=== PATIENT | male | born 1965 | race Caucasian/White ===

== ENCOUNTER 2016-09-12 07:39 | Emergency (ER) | payer SELFPAY ==
[~2016-09-12] VITALS: Ht 180.3 cm; Wt 85.0 kg
[~2016-09-12 07:39] MED LIST: Z.0.NO CURRENT MEDS
[2016-09-12 07:52] VITALS: BP 143/85; PULSE 67; RESP 20; TEMP 98.9; O2SAT 98
--- NOTE | 2016-09-12 08:59 | PD ---
HPI Chief Complaint: Musculoskeletal Complaint Time Seen by Provider: 08:31 Travel History International Travel<30 days: No Contact w/Intl Traveler<30days: No Traveled to known affect area: No History of Present Illness HPI 51-year-old male complains of pain swelling and redness left leg. Patient states that she started noticed redness swelling extended from the left low leg of the left thigh for the past 4 days. Patient denies any fever chills. Patient denies any injury to left leg. Patient denies history of DVT or PE. Patient denies any history of IV drug abuse. PFSH Past Medical History Arthritis: Yes ( back) Asthma: No Autoimmune Disease: Yes (HIV+ PT DENIES) Blood Disorders: No Bipolar Disorder: Yes Anxiety: Yes Depression: Yes Heart Rhythm Problems: No Cancer: No Cardiovascular Problems: No High Cholesterol: No Chemotherapy: No Chest Pain: Yes Congestive Heart Failure: No COPD: No Cerebrovascular Accident: No Diabetes: No Diminished Hearing: No Endocrine: No Gastrointestinal Disorders: No GERD: Yes Glaucoma: No Genitourinary: No Headaches: No Hepatitis: Yes Hiatal Hernia: No Hypertension: Yes Immune Disorder: No Implanted Vascular Access Dvce: No Kidney Stones: No Musculoskeletal: No Neurologic: No Psychiatric: Yes Reproductive: No Respiratory: No Immunizations Current: No Migraines: No Myocardial Infarction: No Pancreatitis: Yes Radiation Therapy: No Renal Failure: No Schizophrenia: Yes Seizures: Yes (ETOH withdrawal related) Sickle Cell Disease: No Sleep Apnea: No Thyroid Disease: No Ulcer: No Tetanus Vaccination: > 5 Years Influenza Vaccination: No PNEUMOCCOCAL Vaccine (Year): 2 Past Surgical History Abdominal Surgery: Yes AICD: No Appendectomy: Yes Arteriovenous Shunt: No Cardiac Surgery: No Cholecystectomy: No Ear Surgery: No Endocrine Surgery: No Eye Surgery: No Genitourinary Surgery: No Gynecologic Surgery: No Insulin Pump: No Joint Replacement: No Neurologic Surgery: No Oral Surgery: No Pacemaker: No Thoracic Surgery: No Other Surgery: Yes (APPENDECTOMY 1975) Social History Alcohol Use: No Tobacco Use: Yes Substance Use: No Allergies-Medications (Allergen,Severity, Reaction): Coded Allergies: No Known Allergies (Verified , 09/12/16) Reported Meds & Prescriptions Reported Meds & Active Scripts Active Reported No Current Meds (Miscellaneous Medication) Misc Review of Systems General / Constitutional: No: Fever Eyes: No: Visual changes HENT: No: Headaches Cardiovascular: No: Chest Pain or Discomfort Respiratory: No: Shortness of Breath Gastrointestinal: No: Abdominal Pain Genitourinary: No: Dysuria Musculoskeletal: Positive: Pain Skin: No Rash Neurologic: No: Weakness Psychiatric: No: Depression Endocrine: No: Polydipsia Hematologic/Lymphatic: No: Easy Bruising Physical Exam Narrative GENERAL: Well-nourished, well-developed patient. SKIN: Focused skin assessment warm/dry. HEAD: Normocephalic. EYES: No scleral icterus. No injection or drainage. NECK: Supple, trachea midline. No JVD or lymphadenopathy. CARDIOVASCULAR: Regular rate and rhythm without murmurs, gallops, or rubs. RESPIRATORY: Breath sounds equal bilaterally. No accessory muscle use. GASTROINTESTINAL: Abdomen soft, non-tender, nondistended. MUSCULOSKELETAL: No cyanosis, or edema. BACK: Nontender without obvious deformity. No CVA tenderness. Patient has redness tenderness along the medial aspect the left lower leg extending to left thigh with increasing redness swelling tenderness medial aspect the left thigh. No induration. No calf tenderness. Negative Homans sign. Data Data Last Documented VS Vital Signs Date Time Temp Pulse Resp B/P Pulse Ox O2 Delivery O2 Flow Rate FiO2 09/12/16 09:25 16 98 09/12/16 07:52 98.9 67 143/85 Orders Complete Blood Count With Diff (09/12/16 08:51) Basic Metabolic Panel (Bmp) (09/12/16 08:51) Prothrombin Time / Inr (Pt) (09/12/16 08:51) Act Partial Throm Time (Ptt) (09/12/16 08:51) Iv Access Insert/Monitor (09/12/16 08:51) Ecg Monitoring (09/12/16 08:51) Oximetry (09/12/16 08:51) Vancomycin Inj (Vancomycin Inj) (09/12/16 09:00) Us Leg Venous Doppler (09/12/16 08:53) Labs Laboratory Tests Test 09/12/16 09:00 White Blood Count 8.7 TH/MM3 Red Blood Count 4.56 MIL/MM3 Hemoglobin 13.1 GM/DL Hematocrit 39.0 % Mean Corpuscular Volume 85.5 FL Mean Corpuscular Hemoglobin 28.7 PG Mean Corpuscular Hemoglobin 33.6 % Concent Red Cell Distribution Width 15.4 % Platelet Count 214 TH/MM3 Mean Platelet Volume 7.3 FL Neutrophils (%) (Auto) 54.1 % Lymphocytes (%) (Auto) 31.7 % Monocytes (%) (Auto) 10.0 % Eosinophils (%) (Auto) 3.5 % Basophils (%) (Auto) 0.7 % Neutrophils # (Auto) 4.7 TH/MM3 Lymphocytes # (Auto) 2.7 TH/MM3 Monocytes # (Auto) 0.9 TH/MM3 Eosinophils # (Auto) 0.3 TH/MM3 Basophils # (Auto) 0.1 TH/MM3 CBC Comment DIFF FINAL Differential Comment Prothrombin Time 10.1 SEC Prothromb Time International 0.9 RATIO Ratio Activated Partial 30.3 SEC Thromboplast Time Sodium Level 136 MEQ/L Potassium Level 4.9 MEQ/L Chloride Level 104 MEQ/L Carbon Dioxide Level 27.2 MEQ/L Anion Gap 5 MEQ/L Blood Urea Nitrogen 14 MG/DL Creatinine 0.81 MG/DL Estimat Glomerular Filtration 101 ML/MIN Rate Random Glucose 94 MG/DL Calcium Level 8.5 MG/DL [facility] Medical Decision Making Medical Screen Exam Complete: Yes Emergency Medical Condition: Yes Interpretation(s) 10:14 AM. CBC within normal limit. BMP within normal limit. Ultrasound left leg shows occlusive thrombus throughout the left greater saphenous vein. Differential Diagnosis Differential diagnosis including superficial phlebitis, cellulitis with lymphangitis. Narrative Course 51-year-old male with redness swelling tenderness extending from the left low leg to left thigh. Aspirin 325 mg by mouth. Vancomycin 1 g IV given. Diagnosis Primary Impression: Superficial thrombophlebitis Qualified Code: I80.02 - Thrombophlebitis of superficial veins of left lower extremity Additional Impression: Cellulitis Qualified Code: L03.116 - Cellulitis of left lower extremity Patient Instructions: General Instructions Additional Instructions: Aspirin daily. Clindamycin as directed. Return in one week for recheck and repeat ultrasound. If progression of superficial thrombophlebitis may need to be anticoagulated. Med/Other Pt SpecificInfo: Prescription(s) given Scripts Clindamycin 150 Mg Cap2 Tab PO Q6H #80 CAP Prov:Josh John MD 09/12/16 Disposition: 01 DISCHARGE HOME Condition: Stable Josh John MD September 12, 2016 08:59
[2016-09-12] MEDS ORDERED: VANCOMYCIN INJ 1,000 MG in SODIUM CHLOR 0.9% 250 ML INJ 250 ML IV ONE (09:00)
[2016-09-12 09:13] LABS: AUTOMATED NEUTROPHIL # 4.7 TH/MM3 (1.8-7.7); BASOPHIL # 0.1 TH/MM3 (0-0.2); BASOPHIL % 0.7 % (0.0-2.0); EOSINOPHIL # 0.3 TH/MM3 (0-0.4); EOSINOPHIL % 3.5 % (0.0-4.0); HEMO FLAGS DIFF FINAL; LYMPH % 31.7 % (9.0-44.0); LYMPHOCYTE # 2.7 TH/MM3 (1.0-4.8); MEAN CELL VOLUME 85.5 FL (80.0-100.0); MEAN CORPUSCULAR HEMOGLOBIN 28.7 PG (27.0-34.0); MEAN CORPUSCULAR HGB CONC 33.6 % (32.0-36.0); NEUT % 54.1 % (16.0-70.0); PLATELET COUNT 214 TH/MM3 (150-450); RED BLOOD COUNT 4.56 MIL/MM3 (4.50-5.90); RED CELL DISTRIBUTION WIDTH 15.4 % (11.6-17.2); WHITE BLOOD COUNT 8.7 TH/MM3 (4.0-11.0)
[2016-09-12 09:24] LABS: APTT (PATIENT) 30.3 SEC (24.3-30.1); INTERNATIONAL NORMALIZED RATIO 0.9 RATIO; PROTHROMBIN TIME - PATIENT 10.1 SEC (9.8-11.6)
[2016-09-12 09:25] VITALS: RESP 16; O2SAT 98
[2016-09-12 09:39] LABS: BICARBONATE 27.2 MEQ/L (21.0-32.0)
[2016-09-12 09:40] LABS: POTASSIUM 4.9 MEQ/L (3.5-5.1)
--- NOTE | 2016-09-12 10:11 | RADRPT ---
EXAM DATE/TIME: 09/12/2016 09:32 [facility] COMPARISON: No previous studies available for comparison. INDICATIONS : Left leg swelling and pain. MEDICAL HISTORY : Hypertension. Pancreatitis. Gastroesophageal reflux disease. Seizures. Arthritis. Schizophrenia. H IV+. SURGICAL HISTORY : Appendectomy. ENCOUNTER: Initial ACUITY: 1 day PAIN SCORE: 7/10 LOCATION: Left leg. TECHNIQUE: Venous ultrasound of the leg was performed from the inguinal ligament to the proximal calf. Real-chandan e, color Doppler and spectral tracing, compression and augmentation techniques were used. FINDINGS: There is normal compressibility of the deep venous system from the inguinal region to the proximal ca lf. No echogenic clot is seen in the lumen of the common femoral, femoral, popliteal, and posterior tibial veins. There is a normal response of the venous system to proximal and distal augmentation an d respiration. There is occlusive thrombosis of the greater saphenous vein. CONCLUSION: 1. No deep venous thrombosis. 2. Occlusive thrombus throughout the left greater saphenous vein. Micha Morrissey MD on September 12, 2016 at 10:06 Board Certified Radiologist. This report was verified electronically.
[2016-09-12] MEDS ORDERED: CLIN1CAP5 PO (10:57)
[2016-09-12] MEDS ORDERED: ASPIRIN 325 MG TAB PO ONE (11:00)
[2016-09-12 11:18] VITALS: BP 131/78; TEMP 98
== END 2016-09-12 11:19 | disposition home or self-care (01) ==
LOC: NEPC 07:39
DX: I80.02 Phlebitis and thrombophlebitis of superficial vessels of left lower extremity (principal); L03.116 Cellulitis of left lower limb; I10 Essential (primary) hypertension; Z72.0 Tobacco use
CPT/HCPCS: 80048; 85025; 85610; 85730; 93971; 96365; 99284; J3370; J7050